=== PATIENT | female | born 1975 | race Caucasian/White ===

== ENCOUNTER → 2019-03-17 | Outpatient (REF) | payer OTHER | LOC: M LAB REF 12:06 | PROVIDERS: ATTEND Nurse Practitioner Family | DX: N39.0 Urinary tract infection, site not specified (principal) ==

== ENCOUNTER → 2020-02-29 | Outpatient (CLI) | payer SELFPAY | LOC: M LABSMTC 13:36 | PROVIDERS: ATTEND Pediatrics | DX: Z20.828 Contact with and (suspected) exposure to other viral communicable diseases (principal) ==

== ENCOUNTER → 2020-06-03 | Outpatient (CLI) | payer OTHER ==
[2020-06-03 16:43] LABS: FREE T4 0.71 NG/DL (0.76-1.46); THYROID STIMULATING HORMONE 2.07 uIU/ML (0.358-3.740)
[2020-06-03 16:45] LABS: PROLACTIN 8.1 NG/ML
== END ==
LOC: M WUC 14:24
PROVIDERS: ATTEND Obstetrics & Gynecology Obstetrics
DX: Z01.419 Encounter for gynecological examination (general) (routine) without abnormal findings (principal)

== ENCOUNTER → 2020-09-12 | Outpatient (CLI) | payer OTHER ==
--- NOTE | 2020-09-13 06:49 | REP ---
INDICATION: UNSPECIFIED OPEN WOUND COMPARISON: None. TECHNIQUE: Orthogonal views of the calcaneus (3 total views) FINDINGS: Lateral view demonstrates large calcaneal heel spur. The associated soft tissues including plantar fascia appear normal and without calcifications or loose bodies. The calcaneus is otherwise intact and normal in appearance with normal associated joint spaces. IMPRESSION: Large calcaneal heel spur.. No acute fracture or dislocation. <Electronically signed by Ramon Mcdermott > 09/13/20 0620
== END ==
LOC: M WUC 10:46
PROVIDERS: ATTEND Physician Assistant
DX: S91.302A Unspecified open wound, left foot, initial encounter (principal); M77.32 Calcaneal spur, left foot; X58.XXXA Exposure to other specified factors, initial encounter; Y92.9 Unspecified place or not applicable

== ENCOUNTER → 2023-08-06 | Outpatient (CLI) | payer BC ==
[2023-08-06 15:13] LABS: HEMATOCRIT 40.9 % (36.0-47.0); HEMOGLOBIN 12.8 g/dl (12.0-15.5); MEAN CORPUSCULAR HEMOGLOBIN 27.7 pg (27.0-33.0); MEAN CORPUSCULAR HGB CONC 31.3 g/dl (32.0-36.5); MEAN CORPUSCULAR VOLUME 88.5 fl (80.0-96.0); PLATELET COUNT, AUTOMATED 405 10^3/uL (150-450); RED BLOOD COUNT 4.62 10^6/uL (4.00-5.40); WHITE BLOOD COUNT 6.8 10^3/uL (4.0-10.0)
[2023-08-06 15:20] LABS: ALBUMIN 3.3 G/DL (3.2-5.2); ALKALINE PHOSPHATASE 86 U/L (46-116); ALT/SGPT 17 U/L (7.0-40); AST/SGOT 14 U/L (<34); BILIRUBIN,DIRECT 0.1 MG/DL (<0.4); BILIRUBIN,TOTAL 0.3 MG/DL (0.3-1.2); BLOOD UREA NITROGEN 19 MG/DL (9-23); CALCIUM LEVEL 8.7 MG/DL (8.5-10.1); CARBON DIOXIDE LEVEL 26 MMOL/L (20-31); CHLORIDE LEVEL 109 MMOL/L (98-107); CHOLESTEROL LEVEL 187 MG/DL (<200); CREATININE FOR GFR 0.83 MG/DL (0.55-1.30); GLOMERULAR FILTRATION RATE > 60.0 (>58); GLUCOSE, FASTING 96 MG/DL (60-100); HDL CHOLESTEROL 69.1 MG/DL (>40); LDL CHOLESTEROL 101.9 MG/DL (<100); NON-HDL-C 117.9 MG/DL; PHOSPHORUS LEVEL 4.2 MG/DL (2.5-4.9); POTASSIUM SERUM 4.3 MMOL/L (3.5-5.1); SODIUM LEVEL 141 MMOL/L (136-145); THYROXINE (T4) 6.5 UG/DL (4.5-10.9); TRIGLYCERIDES LEVEL 80 MG/DL (<150)
[2023-08-06 15:31] LABS: HEMOGLOBIN A1c 5.4 % (4.0-6.0)
== END ==
LOC: M WUC 09:27
PROVIDERS: ATTEND Nurse Practitioner Family
DX: E66.8 Other obesity (principal)